=== PATIENT | male | born 1995 | race Caucasian/White ===

== ENCOUNTER 2024-07-16 14:33 | Emergency (ER) | payer BC ==
[~2024-07-16] VITALS: Ht 188 cm; Wt 129.3 kg
[2024-07-16 14:46] VITALS: BP_SYST 90; PULSE 104; RESP 18; TEMP 97.6; O2SAT 96
[2024-07-16 15:52] LABS: BASOPHILS % (AUTO) 0.2 % (0.0-2.0); EOSINOPHILS # (AUTO) 0.1 K/uL (0.0-0.4); HEMATOCRIT 44.1 % (36-54); HEMOGLOBIN 14.7 g/dL (14.0-18.0); LYMPHOCYTES # (AUTO) 2.1 K/uL (1.0-5.5); MEAN CORPUSCULAR HEMOGLOBIN 27 pg (27-31); MEAN CORPUSCULAR HGB CONC 33 % (32-36); MEAN CORPUSCULAR VOLUME 82 fL (79.0-98.0); MONOCYTES # (AUTO) 0.9 K/uL (0.0-1.0); MONOCYTES % (AUTO) 7.3 % (1.7-9.3); NEUTROPHILS # (AUTO) 9.2 K/uL (1.8-7.7); NEUTROPHILS % (AUTO) 74.5 % (40.0-70.0); PLATELET COUNT (AUTO) 310 K/uL (130-430); RED BLOOD CELL COUNT(AUTO) 5.41 MIL/uL (4.2-6.2); RED CELL DISTRIBUTION WIDTH 15.9 % (9.0-15.0); WHITE BLOOD COUNT (AUTO) 12.3 K/uL (4.8-10.8)
[2024-07-16] MEDS: ONDANSETRON HCL 4 MG/2 ML VIAL IVP ONE ×2 (15:54→19:04)
[2024-07-16] MEDS: KETOROLAC TROMETHAMINE 30 MG VIAL IVP ONE (15:58)
[2024-07-16] MEDS: MORPHINE SULFATE 10 MG/ML VIAL IVP ONE (16:02)
[2024-07-16] MEDS: METHOCARBAMOL 1000 MG/10 ML VIAL IVP ONE (16:09)
[2024-07-16] MEDS: methylPREDNISolone SOD SUCC/PF 62.5 MG/ML VIAL IVP ONE (16:09)
[2024-07-16 16:13] LABS: CREATININE 1.13 mg/dL (0.55-1.30); POTASSIUM 4.7 mmol/L (3.5-5.1)
[2024-07-16] MEDS ORDERED: BENA10TA73 PO (17:38)
[2024-07-16 17:49] LABS: BILIRUBIN,URINE NEGATIVE (NEGATIVE); BLOOD, URINE NEGATIVE (NEGATIVE); CLARITY/URINE CLEAR (CLEAR); COLOR,URINE YELLOW (YELLOW); GLUCOSE,URINE NEGATIVE (NEGATIVE); KETONES,URINE NEGATIVE (NEGATIVE); LEUKOCYTE ESTERASE ,URINE NEGATIVE (NEGATIVE); NITRITE, URINE NEGATIVE (NEGATIVE); PROTEIN URINE NEGATIVE (NEGATIVE); UROBILINOGEN,URINE 0.2 (0.2-1.0)
[2024-07-16] MEDS: MORPHINE 2 MG/ML INJ. SYRINGE IVP ONE (19:04)
[2024-07-16] MEDS: MORPHINE 4 MG INJ. 4 MG/ML VIAL IVP ONE (21:37)
[2024-07-16 21:40] VITALS: BP_SYST 134; PULSE 98; RESP 20; TEMP 96.8; O2SAT 99
== END 2024-07-16 21:40 | disposition short-term general hospital (02) ==
LOC: SED 14:33
DX: M51.26 Other intervertebral disc displacement, lumbar region (principal); M51.37 Other intervertebral disc degeneration, lumbosacral region; R20.2 Paresthesia of skin; I10 Essential (primary) hypertension; Z79.899 Other long term (current) drug therapy
CPT/HCPCS: 99285; 96374; 96375; 72131; 80048; 81001; 85025; 36415; 96376; 81003; J1885; J2405; J2270 ×3; J2800; J2930